=== PATIENT | female | born 1965 | race Hispanic/Latino ===

== ENCOUNTER 2017-03-25 17:37 | Emergency (ER) | payer SELFPAY ==
[2017-03-25 18:07] VITALS: BP 136/82; PULSE 62; RESP 16; TEMP 98.5; O2SAT 99
--- NOTE | 2017-03-25 18:11 | ED PDOC ---
Arrival/HPI - General Chief Complaint: Female Genitourinary Time Seen by Provider: 03/25/17 17:58 Historian: Patient - History of Present Illness Narrative History of Present Illness (Text): 03/25/17 18:11 51 y/o female, pmh including hypothyroidism, nkda, urine hcg negative, c/o burning urinary sensation and dysuria x 3 days. Pt. stated that this feels like her usual UTI, been having burning sensation with urinary frequency, no vaginal bleeding or discharge, no night sweat, no rash, no numbness or tingling , no palpitation, no other medical or psychological complaints. Past Medical History - Provider Review Nursing Documentation Reviewed: Yes - Infectious Disease Hx of Infectious Diseases: None - Reproductive Menopause: No - Cardiac Hx Hypertension: Yes - Endocrine/Metabolic Hx Hypothyroidism: Yes - Psychiatric Hx Depression: Yes Hx Substance Use: No - Anesthesia Hx Anesthesia: No Family/Social History - Physician Review Nursing Documentation Reviewed: Yes Family/Social History: Unknown Family HX Smoking Status: Unknown If Ever Smoked Hx Alcohol Use: Yes Frequency of alcohol use: Socially Hx Substance Use: No Allergies/Home Meds Allergies/Adverse Reactions: Allergies No Known Allergies Allergy (Verified 03/25/17 18:07) Home Medications: Home Meds Medication Instructions Recorded Confirmed FLUoxetine [Fluoxetine HCl] 20 mg PO BID 03/25/17 03/25/17 Levothyroxine [Levoxyl] 0 mg PO DAILY 03/25/17 03/25/17 Review of Systems - Review of Systems Constitutional: absent: Fatigue, Fevers Eyes: absent: Vision Changes ENT: absent: Hearing Changes Respiratory: absent: SOB, Cough Cardiovascular: absent: Chest Pain Gastrointestinal: absent: Abdominal Pain, Nausea, Vomiting Genitourinary Female: Dysuria, Frequency. absent: Hematuria, Urine Output Changes, Vaginal Bleeding, Vaginal Discharge Musculoskeletal: absent: Arthralgias, Back Pain Skin: absent: Rash, Pruritis Neurological: absent: Headache, Dizziness Physical Exam Vital Signs Reviewed: Yes Vital Signs Temp Pulse Resp BP Pulse Ox 03/25/17 18:01 98.5 F 62 16 136/82 99 Temperature: Afebrile Blood Pressure: Normal Pulse: Regular Respiratory Rate: Normal Appearance: Positive for: Well-Appearing, Non-Toxic, Comfortable Pain Distress: Mild Mental Status: Positive for: Alert and Oriented X 3 - Systems Exam Head: Present: Atraumatic, Normocephalic Pupils: Present: PERRL Extroacular Muscles: Present: EOMI Conjunctiva: Present: Normal Mouth: Present: Moist Mucous Membranes Neck: Present: Normal Range of Motion Respiratory/Chest: Present: Clear to Auscultation, Good Air Exchange. No: Respiratory Distress, Accessory Muscle Use Cardiovascular: Present: Regular Rate and Rhythm, Normal S1, S2. No: Murmurs Abdomen: Present: Normal Bowel Sounds. No: Tenderness, Distention, Peritoneal Signs Back: Present: Normal Inspection. No: CVA Tenderness Upper Extremity: Present: Normal Inspection. No: Cyanosis, Edema Lower Extremity: Present: Normal Inspection. No: Edema Neurological: Present: GCS=15, Speech Normal, Motor Func Grossly Intact, Gait Normal, Memory Normal Skin: Present: Warm, Dry, Normal Color. No: Rashes Psychiatric: Present: Alert, Oriented x 3, Normal Insight, Normal Concentration Medical Decision Making ED Course and Treatment: 03/25/17 18:12 -urine hcg -ua -observe and reassess 03/25/17 18:57 -Urine hcg negative. -UA show +UTI. -Macrobid ordered. -Discharge home with macrobid, pyridium, stay hydrated, bed rest, follow up with your own pmd and obgyn within 2 days, return to the ER for any new or worsening signs or symptoms. - Lab Interpretations Lab Results: Lab Results 03/25/17 18:21: Urine Color Yellow, Urine Appearance Cloudy, Urine pH 8.0, Ur Specific [place] 1.020, Urine Protein 100 H, Urine Glucose (UA) Negative, Urine Ketones Negative, Urine Blood Large H, Urine Nitrate Negative, Urine Bilirubin Negative, Urine Urobilinogen 0.2, Ur Leukocyte Esterase Large H, Urine RBC Tntc , Urine WBC Tntc, Ur Epithelial Cells 6 - 8, Urine Bacteria Many - Medication Orders Current Medication Orders: Discontinued Medications Nitrofurantoin Macrocrystals (Macrobid) 100 mg PO STAT STA Stop: 03/25/17 18:56 - PA / RAFTSMAN / Resident Statement /DO has reviewed & agrees with the documentation as recorded. Disposition/Present on Arrival - Present on Arrival Any Indicators Present on Arrival: No History of DVT/PE: No History of Uncontrolled Diabetes: No Urinary Catheter: No History of Decub. Ulcer: No History Surgical Site Infection Following: None - Disposition Have Diagnosis and Disposition been Completed?: Yes Diagnosis: UTI (urinary tract infection) Disposition: HOME/ ROUTINE Disposition Time: 18:58 Patient Plan: Discharge Patient Problems: Current Active Problems Problem Status Onset UTI (urinary tract infection) Acute Condition: GOOD Additional Instructions: -Discharge home with macrobid, pyridium, stay hydrated, bed rest, follow up with your own pmd and obgyn within 2 days, return to the ER for any new or worsening signs or symptoms. Prescriptions: Nitrofurantoin Macrocrystals [Macrobid] 100 mg PO BID #14 cap Phenazopyridine HCl [Pyridium] 200 mg PO TID #6 tablet Referrals: PCP,CHRIS [Primary Care Provider] - Follow up with primary Rosa Dale MD [Staff Provider] - Follow up with primary Forms: WORK NOTE
[2017-03-25 18:25] LABS: URINE BILIRUBIN NEGATIVE (NEGATIVE); URINE BLOOD LARGE (NEGATIVE); URINE GLUCOSE (UA) NEGATIVE (NEGATIVE); URINE KETONE NEGATIVE (NEGATIVE); URINE LEUKOCYTE ESTERASE LARGE Leu/uL (NEGATIVE); URINE PROTEIN 100 mg/dL (<30 mg/dL); URINE UROBILINOGEN 0.2 E.U./dL (<1 E.U./dL)
[2017-03-25 18:31] LABS: URINE APPEARANCE CLOUDY (CLEAR); URINE COLOR YELLOW (YELLOW)
[2017-03-25 18:33] LABS: URINE BACTERIA MANY (NEG); URINE RBC TNTC /hpf (0-2); URINE WBC TNTC /hpf (0-6)
== END 2017-03-25 19:23 | disposition home or self-care (01) ==
LOC: ED 17:37
DX: N39.0 Urinary tract infection, site not specified (principal); I10 Essential (primary) hypertension; E03.9 Hypothyroidism, unspecified

== ENCOUNTER 2018-01-09 17:14 | Emergency (ER) | payer OTHER ==
[2018-01-09 17:22] VITALS: TEMP 98
[2018-01-09 17:38] LABS: URINE APPEARANCE SLIGHT-CLOUDY (CLEAR); URINE BILIRUBIN NEGATIVE (NEGATIVE); URINE BLOOD LARGE (NEGATIVE); URINE COLOR DARK YELLOW (YELLOW); URINE GLUCOSE (UA) NEGATIVE (NEGATIVE); URINE LEUKOCYTE ESTERASE SMALL Leu/uL (NEGATIVE); URINE PROTEIN 30 mg/dL (<30 mg/dL); URINE UROBILINOGEN 0.2 E.U./dL (<1 E.U./dL)
--- NOTE | 2018-01-09 17:39 | ED PDOC ---
Arrival/HPI - General Historian: Patient <Blaire Ruff A - Last Filed: 01/09/18 17:41> <Jelena Das - Last Filed: 01/12/18 02:22> - General Chief Complaint: Female Genitourinary Time Seen by Provider: 01/09/18 17:27 - History of Present Illness Narrative History of Present Illness (Text): 01/09/18 17:36 52yo female with pmhx of hypothyroid who present with complaint of dysuria and urinary frequency since this morning. She reports multiple history of UTI. the last time she had UTI was last month. States she was referred to a urologist, but afraid to go see one. She denies abdominal or back pain. Denies fever, chills, nausea, vomiting, any other complaint. (Blaire Ruff A) Past Medical History - Provider Review Nursing Documentation Reviewed: Yes - Infectious Disease Hx of Infectious Diseases: None - Cardiac Hx Cardiac Disorders: Yes - Pulmonary Hx Respiratory Disorders: Yes Hx Respiratory Tract Infection: Yes - Neurological Hx Neurological Disorder: No - HEENT Hx HEENT Disorder: No - Renal Hx Renal Disorder: No - Endocrine/Metabolic Hx Endocrine Disorders: Yes Hx Hypothyroidism: Yes - Hematological/Oncological Hx Blood Disorders: No - Integumentary Hx Dermatological Disorder: No - Musculoskeletal/Rheumatological Hx Musculoskeletal Disorders: No - Gastrointestinal Hx Gastrointestinal Disorders: No - Genitourinary/Gynecological Hx Genitourinary Disorders: Yes Hx Urinary Tract Infection: Yes - Psychiatric Hx Psychophysiologic Disorder: Yes Hx Depression: Yes Hx Substance Use: No - Surgical History Hx Section: Yes Hx Orthopedic Surgery: Yes - Anesthesia Hx Anesthesia: No <Blaire Ruff A - Last Filed: 01/09/18 17:41> Family/Social History - Physician Review Nursing Documentation Reviewed: Yes Family/Social History: Unknown Family HX Smoking Status: Never Smoked Hx Alcohol Use: Yes Frequency of alcohol use: Socially Hx Substance Use: No <Blaire Ruff A - Last Filed: 01/09/18 17:41> Allergies/Home Meds <Blaire Ruff A - Last Filed: 01/09/18 17:41> <Jelena Das - Last Filed: 01/12/18 02:22> Allergies/Adverse Reactions: Allergies No Known Allergies Allergy (Verified 09/15/18 17:16) Home Medications: Home Meds Medication Instructions Recorded Confirmed FLUoxetine [Fluoxetine HCl] 20 mg PO BID 03/25/17 01/09/18 Levothyroxine [Levoxyl] 1 tab PO DAILY 03/25/17 01/09/18 Amoxicillin [Amoxil 500 mg Cap] 500 mg PO BID 01/09/18 01/09/18 Review of Systems - Physician Review All systems were reviewed & negative as marked: Yes - Review of Systems Constitutional: Normal Eyes: Normal ENT: Normal Respiratory: Normal Cardiovascular: Normal Gastrointestinal: Normal Genitourinary Female: Dysuria, Frequency Musculoskeletal: Normal Skin: Normal Neurological: Normal Endocrine: Normal Hemo/Lymphatic: Normal Psychiatric: Normal <Diru,Happiness A - Last Filed: 01/09/18 17:41> Physical Exam Vital Signs Reviewed: Yes Temperature: Afebrile Blood Pressure: Normal Pulse: Regular Respiratory Rate: Normal Appearance: Positive for: Well-Appearing, Non-Toxic, Comfortable Pain Distress: None Mental Status: Positive for: Alert and Oriented X 3 - Systems Exam Head: Present: Atraumatic, Normocephalic Pupils: Present: PERRL Extroacular Muscles: Present: EOMI Conjunctiva: Present: Normal Mouth: Present: Moist Mucous Membranes Neck: Present: Normal Range of Motion Respiratory/Chest: Present: Clear to Auscultation, Good Air Exchange. No: Respiratory Distress, Accessory Muscle Use Cardiovascular: Present: Regular Rate and Rhythm, Normal S1, S2. No: Murmurs Abdomen: No: Tenderness, Distention, Peritoneal Signs Back: Present: Normal Inspection. No: CVA Tenderness Upper Extremity: Present: Normal Inspection. No: Cyanosis, Edema Lower Extremity: Present: Normal Inspection. No: Edema Neurological: Present: GCS=15, CN II-XII Intact, Speech Normal Skin: Present: Warm, Dry, Normal Color. No: Rashes Psychiatric: Present: Alert, Oriented x 3, Normal Insight, Normal Concentration <Diru,Happiness A - Last Filed: 01/09/18 17:41> Vital Signs Temp Pulse Resp BP Pulse Ox 01/09/18 17:57 72 18 132/79 98 01/09/18 17:17 98.0 F 76 17 141/90 97 - Lab Interpretations Microbiology Results: Microbiology Results 01/09/18 17:45 Urine,Clean Catch Urine Culture - Final No Growth (<1,000 CFU/ML) Lab Results: Lab Results 01/09/18 17:33: Urine Color Dark yellow, Urine Appearance Slight-cloudy, Urine pH 6.0, Ur Specific [place] >= 1.030, Urine Protein 30 H, Urine Glucose (UA) Negative, Urine Ketones Trace H, Urine Blood Large H, Urine Nitrate Negative, Urine Bilirubin Negative, Urine Urobilinogen 0.2, Ur Leukocyte Esterase Small H , Urine RBC 2 - 5, Urine WBC 5 - 10, Ur Epithelial Cells None, Urine Bacteria None, Hyaline Casts 0 - 2, Urine Other Mucus - Medication Orders Current Medication Orders: Discontinued Medications Cephalexin Monohydrate (Keflex) 500 mg PO STAT STA PRN Reason: Protocol Stop: 01/09/18 17:41 Last Admin: 01/09/18 17:48 Dose: 500 mg Phenazopyridine HCl (Pyridium) 200 mg PO STAT STA Stop: 01/09/18 17:41 Last Admin: 01/09/18 17:48 Dose: 200 mg - PA / CALENDERING SUPERVISOR / Resident Statement / has reviewed & agrees with the documentation as recorded. <Jelena Das - Last Filed: 01/12/18 02:22> Disposition/Present on Arrival - Present on Arrival Any Indicators Present on Arrival: No History of DVT/PE: No History of Uncontrolled Diabetes: No Urinary Catheter: No History of Decub. Ulcer: No History Surgical Site Infection Following: None - Disposition Have Diagnosis and Disposition been Completed?: Yes Disposition Time: 17:45 Patient Plan: Discharge <Blaire Ruff - Last Filed: 01/09/18 17:41> <Jelena Das - Last Filed: 01/12/18 02:22> - Disposition Diagnosis: UTI (urinary tract infection) Disposition: HOME/ ROUTINE Condition: STABLE Discharge Instructions (ExitCare): Urinary Tract Infections in Adults Additional Instructions: Follow up with your doctor/Urologist Return to ED for any new or worsening symptoms Prescriptions: Cephalexin [cephalexin] 500 mg PO TID #21 cap Phenazopyridine [Phenazopyridine HCl] 200 mg PO TID #6 tab Referrals: Clare Chan DO [Primary Care Provider] - Follow up with primary Arias Brito MD [Staff Provider] - Follow up with primary Forms: [employer] ([place])
[2018-01-09 17:50] LABS: URINE HYALINE CAST 0 - 2 /hpf
[2018-01-09 17:58] VITALS: BP 132/79; PULSE 72; RESP 18; O2SAT 98
== END 2018-01-09 17:56 | disposition home or self-care (01) ==
LOC: ED 17:14
DX: N39.0 Urinary tract infection, site not specified (principal)

== ENCOUNTER 2018-07-24 15:18 | Emergency (ER) | payer OTHER ==
[2018-07-24 15:24] VITALS: TEMP 98.3
--- NOTE | 2018-07-24 15:32 | ED PDOC ---
Arrival/HPI - General Chief Complaint: Female Genitourinary Historian: Patient - History of Present Illness Narrative History of Present Illness (Text): 07/24/18 15:31 53 y/o female, no significant pmh, nkda, c/o foul vaginal smell x 2 days and feels like her bacterial vaginosis. Vaginal discharge, fishy smell for the past 2 days. Pt. stated that she never had STD and doesn't feels this is STD, refused to be tested for STD. Pt. stated that she occasional have pain from sexual intercourse for the past few weeks, no night sweat, no rash, no dizziness, no change in vision, no other medical or psychological complaints. Past Medical History - Provider Review Nursing Documentation Reviewed: Yes - Infectious Disease Hx of Infectious Diseases: None - Cardiac Hx Cardiac Disorders: Yes - Pulmonary Hx Respiratory Disorders: Yes Hx Respiratory Tract Infection: Yes - Neurological Hx Neurological Disorder: No - HEENT Hx HEENT Disorder: No - Renal Hx Renal Disorder: No - Endocrine/Metabolic Hx Endocrine Disorders: Yes Hx Hypothyroidism: Yes - Hematological/Oncological Hx Blood Disorders: No - Integumentary Hx Dermatological Disorder: No - Musculoskeletal/Rheumatological Hx Musculoskeletal Disorders: No - Gastrointestinal Hx Gastrointestinal Disorders: No - Genitourinary/Gynecological Hx Genitourinary Disorders: Yes Hx Urinary Tract Infection: Yes - Psychiatric Hx Psychophysiologic Disorder: Yes Hx Depression: Yes Hx Substance Use: No - Surgical History Hx Section: Yes Hx Orthopedic Surgery: Yes - Anesthesia Hx Anesthesia: No Family/Social History - Physician Review Nursing Documentation Reviewed: Yes Family/Social History: Unknown Family HX Smoking Status: Never Smoked Hx Alcohol Use: Yes Hx Substance Use: No Allergies/Home Meds Allergies/Adverse Reactions: Allergies No Known Allergies Allergy (Verified 07/24/18 15:19) Home Medications: Home Meds Medication Instructions Recorded Confirmed FLUoxetine [Fluoxetine HCl] 20 mg PO BID 03/25/17 07/24/18 Levothyroxine [Levoxyl] 1 tab PO DAILY 03/25/17 07/24/18 Ezetimibe [Zetia] 10 mg PO DAILY 07/24/18 07/24/18 Review of Systems - Review of Systems Constitutional: absent: Fatigue, Fevers Eyes: absent: Vision Changes ENT: absent: Hearing Changes Respiratory: absent: SOB, Cough Cardiovascular: absent: Chest Pain Gastrointestinal: absent: Abdominal Pain, Diarrhea, Nausea, Vomiting Genitourinary Female: Vaginal Discharge, Other (no pelvic pain). absent: Dysuria, Frequency, Hematuria, Urine Output Changes, Vaginal Bleeding Musculoskeletal: absent: Arthralgias, Back Pain Skin: absent: Rash, Pruritis Neurological: absent: Headache, Dizziness Psychiatric: absent: Anxiety, Depression, Suicidal Ideation Physical Exam Vital Signs Reviewed: Yes Vital Signs Temp Pulse Resp BP Pulse Ox 07/24/18 15:20 98.3 F 80 16 134/85 96 Temperature: Afebrile Blood Pressure: Normal Pulse: Regular Respiratory Rate: Normal Appearance: Positive for: Well-Appearing, Non-Toxic, Comfortable Pain Distress: None Mental Status: Positive for: Alert and Oriented X 3 - Systems Exam Head: Present: Atraumatic, Normocephalic Pupils: Present: PERRL Extroacular Muscles: Present: EOMI Conjunctiva: Present: Normal Mouth: Present: Moist Mucous Membranes Neck: Present: Normal Range of Motion Respiratory/Chest: Present: Clear to Auscultation, Good Air Exchange. No: Respiratory Distress, Accessory Muscle Use Cardiovascular: Present: Regular Rate and Rhythm, Normal S1, S2. 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 ). No: Vaginal Discharge, Vaginal Bleeding, Vaginal Lesions, Adenexal Tenderness, Adenexal Mass, Cervical Motion Tendernes, Odor Back: Present: Normal Inspection Upper Extremity: Present: Normal Inspection, Normal ROM, NORMAL PULSES, Neurovascularly Intact, Capillary Refill < 2s. No: Cyanosis, Edema, Deformity Lower Extremity: Present: Normal Inspection, NORMAL PULSES, Neurovascularly Intact, Capillary Refill < 2 s. No: Edema, Tenderness, Swelling, Temperature Abnormalties Neurological: Present: GCS=15, CN II-XII Intact, Speech Normal Skin: Present: Warm, Dry, Normal Color. No: Rashes Psychiatric: Present: Alert, Oriented x 3, Normal Insight, Normal Concentration Medical Decision Making ED Course and Treatment: 07/24/18 16:00 -Urine hcg -UA -Transvaginal sonogram 07/24/18 16:15 -urine hcg is negative -UA show mild UTI -Toradol 60mg IM ordered. -Pt. refused STD testings. 07/24/18 18:25 -Sonogram: Unremarkable pelvic ultrasound. RIGHT OVARY:Measures 2.3 x 1.6 x 2.1 cm. No solid mass. Unable to evaluate flow due to position of the ovary. 1.3 cm cyst -Pt. has no rt. pelvic pain, no adnxal tenderness. Pt. has no pain, laughing and smiling, discussed with Dr. Barragan about this result and he recommend to discharge home. -I discussed the result with the patient including sonogram about rt. ovary, she understands and refused to repeat sonogram. pt. stated that she feels well and no pain, request to be discharged home. I advised to return to the ER if she has pelvic pain. -Discharge home with flagyl, macrobid, motrin bed rest, stay hydrated, follow up with your own pmd and obgyn within 2 days, return to the ER for any new or worsening signs or symptoms. - RAD Interpretation Radiology Orders: Date of service: 07/24/2018 HISTORY: ovarian cyst? COMPARISON: None available. TECHNIQUE: Transvaginal FINDINGS: UTERUS: Measures 8.3 x 4.0 x 4.5 cm. Normal in size and appearance. No fibroid or other mass lesion seen. ENDOMETRIUM: Measures 4 mm in diameter. Unremarkable. CERVIX: No cervical abnormality identified. 3 cm in length RIGHT OVARY: Measures 2.3 x 1.6 x 2.1 cm. No solid mass. Unable to evaluate flow due to position of the ovary. 1.3 cm cyst LEFT OVARY: Measures 2.2 x 1.1 x 2.2 cm. No solid mass. Normal flow. FREE FLUID: No significant free fluid noted. OTHER FINDINGS: None. IMPRESSION: Unremarkable pelvic ultrasound. See comments Director Of National Sales: Radiologist - PA / HYDRAULIC ELEVATOR CONSTRUCTOR / Resident Statement MD/DO has reviewed & agrees with the documentation as recorded. Disposition/Present on Arrival - Present on Arrival Any Indicators Present on Arrival: No History of DVT/PE: No History of Uncontrolled Diabetes: No Urinary Catheter: No History of Decub. Ulcer: No History Surgical Site Infection Following: None - Disposition Have Diagnosis and Disposition been Completed?: Yes Diagnosis: UTI (urinary tract infection), Bacterial vaginosis Disposition: HOME/ ROUTINE Disposition Time: 18:27 Patient Plan: Discharge Patient Problems: Current Active Problems Problem Status Onset Bacterial vaginosis Acute UTI (urinary tract infection) Acute Condition: IMPROVED Additional Instructions: -Discharge home with flagyl, macrobid, motrin bed rest, stay hydrated, follow up with your own pmd and obgyn within 2 days, return to the ER for any new or worsening signs or symptoms. Prescriptions: Ibuprofen [Motrin] 600 mg PO QID PRN #30 tab PRN Reason: Other metroNIDAZOLE [Flagyl] 500 mg PO BID #14 tab Nitrofurantoin Macrocrystals [Macrobid] 100 mg PO BID #14 cap Referrals: Horacio Kline DO [Staff Provider] - Follow up with primary Forms: [facility] ([employer]), WORK NOTE
[2018-07-24 15:54] LABS: URINE BILIRUBIN NEGATIVE (NEGATIVE); URINE BLOOD SMALL (NEGATIVE); URINE GLUCOSE (UA) NEGATIVE (NEGATIVE); URINE LEUKOCYTE ESTERASE TRACE Leu/uL (NEGATIVE); URINE PROTEIN NEGATIVE mg/dL (<30 mg/dL); URINE UROBILINOGEN 0.2 E.U./dL (<1 E.U./dL)
[2018-07-24 15:55] LABS: URINE APPEARANCE CLEAR (CLEAR); URINE COLOR YELLOW (YELLOW)
[2018-07-24 16:10] LABS: URINE WBC 0 - 2 /hpf (0-6)
[2018-07-24 17:20] VITALS: BP 130/77; PULSE 60; RESP 18; O2SAT 99
--- NOTE | 2018-07-24 18:17 | US ---
Date of service: 07/24/2018 HISTORY: ovarian cyst? COMPARISON: None available. TECHNIQUE: Transvaginal FINDINGS: UTERUS: Measures 8.3 x 4.0 x 4.5 cm. Normal in size and appearance. No fibroid or other mass lesion seen. ENDOMETRIUM: Measures 4 mm in diameter. Unremarkable. CERVIX: No cervical abnormality identified. 3 cm in length RIGHT OVARY: Measures 2.3 x 1.6 x 2.1 cm. No solid mass. Unable to evaluate flow due to position of the ovary. 1.3 cm cyst LEFT OVARY: Measures 2.2 x 1.1 x 2.2 cm. No solid mass. Normal flow. FREE FLUID: No significant free fluid noted. OTHER FINDINGS: None. IMPRESSION: Unremarkable pelvic ultrasound. See comments
== END 2018-07-24 18:36 | disposition home or self-care (01) ==
LOC: ED 15:18
DX: N76.0 Acute vaginitis (principal); N39.0 Urinary tract infection, site not specified; B96.89 Other specified bacterial agents as the cause of diseases classified elsewhere
CPT/HCPCS: 76830; 81001; 81025; 87086; 96372; 99283; J1885

== ENCOUNTER 2018-09-06 10:36 | Emergency (ER) | payer OTHER ==
[2018-09-06 10:39] VITALS: BMI 29.7
[2018-09-06 10:50] VITALS: BP 132/89; RESP 17; TEMP 98
--- NOTE | 2018-09-06 10:59 | ED PDOC ---
Arrival/HPI - General Chief Complaint: Female Genitourinary Time Seen by Provider: 09/06/18 10:37 Historian: Patient - History of Present Illness Narrative History of Present Illness (Text): 09/06/18 10:54 53yr old female presents today with dysuria, frequency and urinary hesitancy x 2 days. pt denies fever/chills. pt states at times she has a slight lower abdominal pressure. no vomiting/diarrhea. no cp or sob. no back pain. pt states she has a Hx of recurrent UTi. pt states she saw urologist and was advised to have a cystoscope but she refused to have it performed. pt states she feels like she gets these same symptoms every few months and symptoms resolve after abx usage. denies vaginal bleeding/discharge. no other complaints. Past Medical History - Provider Review Nursing Documentation Reviewed: Yes - Travel History Have you recently traveled outside [place] w/in the past 3 mons?: No - Infectious Disease Hx of Infectious Diseases: None - Cardiac Hx Cardiac Disorders: Yes - Pulmonary Hx Respiratory Disorders: No - Neurological Hx Neurological Disorder: No - HEENT Hx HEENT Disorder: No - Renal Hx Renal Disorder: No - Endocrine/Metabolic Hx Endocrine Disorders: Yes Hx Hypothyroidism: Yes - Hematological/Oncological Hx Blood Disorders: No - Integumentary Hx Dermatological Disorder: No - Musculoskeletal/Rheumatological Hx Musculoskeletal Disorders: No - Gastrointestinal Hx Gastrointestinal Disorders: No - Genitourinary/Gynecological Hx Genitourinary Disorders: Yes Hx Urinary Tract Infection: Yes - Psychiatric Hx Psychophysiologic Disorder: Yes Hx Depression: Yes Hx Substance Use: No - Surgical History Hx Section: Yes Hx Orthopedic Surgery: Yes - Anesthesia Hx Anesthesia: No Family/Social History - Physician Review Nursing Documentation Reviewed: Yes Family/Social History: Unknown Family HX Smoking Status: Never Smoked Hx Alcohol Use: Yes Frequency of alcohol use: Socially Hx Substance Use: No Allergies/Home Meds Allergies/Adverse Reactions: Allergies No Known Allergies Allergy (Verified 09/06/18 10:39) Home Medications: Home Meds Medication Instructions Recorded Confirmed FLUoxetine [Fluoxetine HCl] 20 mg PO BID 03/25/17 09/06/18 Levothyroxine [Levoxyl] 1 tab PO DAILY 03/25/17 09/06/18 Ezetimibe [Zetia] 10 mg PO DAILY 07/24/18 09/06/18 Review of Systems - Review of Systems Constitutional: absent: Fatigue, Fevers Respiratory: absent: SOB Cardiovascular: absent: Chest Pain Gastrointestinal: Abdominal Pain. absent: Nausea, Vomiting Genitourinary Female: absent: Dysuria, Frequency, Hematuria, Vaginal Bleeding, Vaginal Discharge Musculoskeletal: absent: Back Pain Skin: absent: Rash, Pruritis Psychiatric: absent: Anxiety, Depression Physical Exam Vital Signs Reviewed: Yes Vital Signs Temp Pulse Resp BP Pulse Ox 09/06/18 10:46 98.0 F 68 17 132/89 94 L Temperature: Afebrile Blood Pressure: Normal Pulse: Regular Respiratory Rate: Normal Appearance: Positive for: Well-Appearing, Non-Toxic, Comfortable Pain Distress: None Mental Status: Positive for: Alert and Oriented X 3 - Systems Exam Head: Present: Atraumatic Mouth: Present: Moist Mucous Membranes Neck: Present: Normal Range of Motion Respiratory/Chest: Present: Clear to Auscultation, Good Air Exchange. No: Respiratory Distress, Accessory Muscle Use Cardiovascular: Present: Regular Rate and Rhythm, Normal S1, S2. No: Murmurs Abdomen: No: Tenderness, Distention, Rebound, Guarding Back: Present: Normal Inspection. No: CVA Tenderness, Midline Tenderness, Paraspinal Tenderness Upper Extremity: Present: Normal ROM Lower Extremity: Present: Normal ROM Neurological: Present: GCS=15, Speech Normal Skin: Present: Warm, Dry, Normal Color. No: Rashes Psychiatric: Present: Alert, Oriented x 3 Medical Decision Making ED Course and Treatment: 09/06/18 11:11 53yr old female with dysuria, urinary frequency and hesitency. pt is non toxic well appearing; no distress. stable vitals. abd is soft non tender, non distended. UA: wnl pt reassessment; pt is non toxic well appearing; no distress. stable vitals. will treat patient for dysuria with 3 days of keflex. discussed all results in depth with patient advised f/u with urologist and take medications as prescribed. advised immediate return if symptoms worsen,persist or if new symptoms develop. Patient verbalizes understanding of discharge instructions and need for immediate followup. Impression: Dysuria Keflex; 1 tablet twice daily x 3 days. Increase fluids Follow up with the primary care physician within the next 2 days Follow up with the Urologist within the next 2 days. Return immediately if symptoms worsen,persist or if new symptoms develop. Disposition/Present on Arrival - Present on Arrival Any Indicators Present on Arrival: No History of DVT/PE: No History of Uncontrolled Diabetes: No Urinary Catheter: No History of Decub. Ulcer: No History Surgical Site Infection Following: None - Disposition Have Diagnosis and Disposition been Completed?: Yes Diagnosis: Dysuria Disposition: HOME/ ROUTINE Disposition Time: 11:26 Patient Plan: Discharge Condition: GOOD Discharge Instructions (ExitCare): Dysuria, Adult (DC) Additional Instructions: Keflex; 1 tablet twice daily x 3 days. Increase fluids Follow up with the primary care physician within the next 2 days Follow up with the Urologist within the next 2 days. Return immediately if symptoms worsen,persist or if new symptoms develop. Prescriptions: Cephalexin [Keflex] 500 mg PO BID #6 capsule Referrals: Arias Brito MD [Staff Provider] - Follow up with primary Serenity Carbajal MD [Medical Doctor] - Follow up with primary [facility] [Outside] - Follow up with primary Forms: [facility] (Hungarian), WORK NOTE
[2018-09-06 11:06] VITALS: PULSE 72; O2SAT 97
[2018-09-06 11:10] LABS: URINE BILIRUBIN NEGATIVE (NEGATIVE); URINE BLOOD NEGATIVE (NEGATIVE); URINE GLUCOSE (UA) NEGATIVE (NEGATIVE); URINE LEUKOCYTE ESTERASE NEGATIVE Leu/uL (NEGATIVE); URINE PROTEIN NEGATIVE mg/dL (<30 mg/dL); URINE UROBILINOGEN 0.2 E.U./dL (<1 E.U./dL)
[2018-09-06 11:13] LABS: URINE APPEARANCE CLEAR (CLEAR); URINE COLOR YELLOW (YELLOW)
== END 2018-09-06 11:36 | disposition home or self-care (01) ==
LOC: ED 10:36
DX: R30.0 Dysuria (principal)